=== PATIENT | female | born 1985 | race Caucasian/White ===

== ENCOUNTER 2021-11-29 05:32 | Observation (INO) | payer BC ==
[~2021-11-29] VITALS: Ht 162.6 cm; Wt 97.5 kg
[2021-11-29 06:27] LABS: HEMOGLOBIN 12.8 gm/dl (12.3-15.3); RED BLOOD COUNT 4.37 M/UL (4.00-5.10); WHITE BLOOD COUNT 13.6 K/UL (4.5-11.0)
[2021-11-29 06:50] LABS: BUN/CREATININE RATIO 25 (0-10)
[2021-11-29] MEDS ORDERED: LISINOPRIL10 MG PO (13:20)
[2021-11-29] MEDS ORDERED: METFORMIN HCL1000 M1 PO (13:21)
[2021-11-29] MEDS ORDERED: TRULICITY3 MG/0.5 M SQ (13:21)
[2021-11-30] MEDS ORDERED: COLACE100 MG PO (11:24)
[2021-11-30] MEDS ORDERED: HYDROCODON-ACE1 EAC4 PO (11:24)
== END 2021-11-30 12:18 | disposition home or self-care (01) ==
LOC: ER1 05:32 → MED SURG 4 10:47 → CDU 10:47 → MED SURG 4 15:36
PROVIDERS: ADMIT Surgery
PROC: 0FT44ZZ Resection of Gallbladder, Percutaneous Endoscopic Approach (ICD-10-PCS; principal; 2021-11-29 13:15)
DX: K80.12 Calculus of gallbladder with acute and chronic cholecystitis without obstruction (principal); I10 Essential (primary) hypertension; E11.9 Type 2 diabetes mellitus without complications; E66.9 Obesity, unspecified; Z68.35 Body mass index [BMI] 35.0-35.9, adult; Z79.84 Long term (current) use of oral hypoglycemic drugs; Z79.899 Other long term (current) drug therapy; Z88.0 Allergy status to penicillin
CPT/HCPCS: 71045; 80053; 82550; 82553; 82962; 83690; 84484; 84703; 85025; 96374; 96375; 96376; 99285; G0378; J0690; J1100; J1170; J1885; J2001; J2250; J2270; J2405; J2704; J2765; J3010; Q9967